=== PATIENT | female | born 1985 | race Caucasian/White ===

== ENCOUNTER 2016-09-30 21:27 | Emergency (ER) | payer OTHER ==
[2016-09-30 21:36] VITALS: BP 141/92; PULSE 86; TEMP 98.1; BMI 29.0
--- NOTE | 2016-09-30 22:02 | PDOC ---
History of Present Illness - General Chief Complaint: Pain, Acute Stated Complaint: chest pain Time Seen by Provider: 09/30/16 21:38 - History of Present Illness Initial Comments: This 30-year-old woman with a history of anxiety but no other significant past medical history presents with a 3 day history of intermittent left-sided chest pain along with left arm discomfort. Patient relates onset of pain that was sudden while [facility]. She felt both left upper anterior chest pain as well as discomfort in her left upper back. She had radiation of discomfort down her left arm along with tingling. There was no numbness or weakness of her arm. Pain was not worsened by position or deep breathing. She recalls no overuse or trauma to the area. No history of neck injury or chronic pain. The episodes have resolved after using nonsteroidal anti-inflammatory medications(OTC naproxen). She denies shortness of breath/fever or chills/nausea or other gastrointestinal symptoms. Cardiac risk factors: One grandfather of "heart attack" at age 60; otherwise, no family history of coronary artery disease No hypertension/diabetes mellitus/hyperlipidemia/ smoking/obesity Past History - Past Medical History Allergies/Adverse Reactions: Allergies Allergy/AdvReac Type Severity Reaction Status Date / Time No Known Allergies Allergy Verified 09/30/16 21:30 Home Medications: Ambulatory Orders Meloxicam [Mobic] 15 mg PO DAILY #20 tablet 09/30/16 Psychiatric Problems: Yes (anxiety) - Immunization History Immunization Up to Date: Yes - Psycho/Social/Smoking Cessation Hx Anxiety: No Suicidal Ideation: No Smoking History: Never smoked Have you smoked in the past 12 months: No Information on smoking cessation initiated: No Hx Alcohol Use: Yes (SOCIAL) Drug/Substance Use Hx: No Substance Use Type: None Review of Systems - Review of Systems Able to Perform ROS?: Yes Comments:: 12 point review of systems is negative except for what is noted in the history of present illness *Physical Exam - Vital Signs Last Vital Signs Temp Pulse Resp BP Pulse Ox 98.1 F 86 16 141/92 100 09/30/16 21:32 09/30/16 21:32 09/30/16 21:32 09/30/16 21:32 09/30/16 21:32 - Physical Exam Comments: GENERAL: Adult female, alert and oriented 3, in no acute distress HEAD: Normal with no signs of trauma. EYES: PERRLA, EOMI, sclera anicteric, conjunctiva clear. ENT: Ears normal, nares patent, oropharynx clear without exudates. Moist mucous membranes. NECK: Normal range of motion, supple without lymphadenopathy, JVD, or masses. LUNGS: Breath sounds equal, clear to auscultation bilaterally. No wheezes, and no crackles. HEART:Regular rate and rhythm, normal S1 and S2 without murmur, rub or gallop. ABDOMEN:.normal bowel sounds No guarding,tenderness or rebound.No masses No distention. EXTREMITIES: Normal range of motion, no edema. No clubbing or cyanosis. No erythema, or tenderness. NEUROLOGICAL: Cranial nerves II through XII grossly intact. Normal speech. No focal neurological deficits. MUSCULOSKELETAL: Back non-tender to palpation, no CVA tenderness SKIN: Warm, Dry, normal turgor, no rashes or lesions noted. Twelve-lead electrocardiogram is performed. This shows normal sinus rhythm at 70 bpm; axis, intervals and wave forms oral normal. No evidence of acute ST or T-wave abnormalities ED Treatment Course - LABORATORY CBC & Chemistry Diagram: 09/30/16 21:50 09/30/16 21:50 Medical Decision Making - Medical Decision Making CBC/chem profile/cardiac enzymes evaluated Because of the patient's paresthesias in the left upper extremity, pain likely of neurogenic origin. There is no evidence of weakness or sensory deficits on exam. Patient has been referred to her general doctor for further workup and evaluation. She should return to the emergency room if she experiences worsening of the pain or develops shortness of breath/cough/nausea/diaphoresis *DC/Admit/Observation/Transfer Diagnosis at time of Disposition: Atypical chest pain - Discharge Dispostion Disposition: HOME Condition at time of disposition: Stable - Prescriptions Prescriptions: Meloxicam [Mobic] 15 mg PO DAILY #20 tablet - Patient Instructions Printed Discharge Instructions: DI for Atypical Chest Pain Additional Instructions: Avoid strenuous activity for the next several days Follow-up with your doctor within the next 2-3 days Mobic 15 mg daily; take with food Return to ER if you have severe, persistent pain
[2016-09-30 22:24] LABS: BASOPHIL 1.5 % (0-2.0); EOSINOPHIL 2.9 % (0-4.5); MCH 29.6 pg (25.7-33.7); MCHC 32.8 g/dl (32.0-36.0); MEAN CELL VOLUME 90.1 fl (80-96); MEAN PLT VOLUME 10.1 fl (7.5-11.1); PLATELET COUNT 257 K/MM3 (134-434); RDW 13.2 % (11.6-15.6); WHITE BLOOD COUNT 5.5 K/mm3 (4.0-10.8)
[2016-09-30 22:36] LABS: ALBUMIN 3.9 g/dl (3.5-5.0); ALK PHOS 63 U/L (32-92); ANION GAP 10 (8-16); BILIRUBIN,TOTAL 0.6 mg/dl (0.2-1.0); CALCIUM 8.8 mg/dl (8.4-10.2); CO2 26 mmol/L (22-28); CPK(DFH) 77 IU/L (26-140); CREATININE 0.8 mg/dl (0.6-1.3); GLUCOSE,RANDOM 114 mg/dl (74-106); SGOT/AST 20 U/L (10-42); SGPT/ALT 24 U/L (10-40); TOT PROT 6.5 g/dl (6.4-8.3)
[2016-09-30 22:47] LABS: COCKROFT - GAULT NT
[2016-09-30 23:01] LABS: TROPONIN I (DFP) < 0.03 ng/ml (0.03-0.50)
--- NOTE | 2016-10-01 11:51 | EKG ---
Test Reason : Blood Pressure : / mmHG Vent. Rate : 070 BPM Atrial Rate : 070 BPM P-R Int : 202 ms QRS Dur : 088 ms QT Int : 378 ms P-R-T Axes : 012 062 050 degrees QTc Int : 408 ms NORMAL SINUS RHYTHM NORMAL ECG WHEN COMPARED WITH ECG OF 02-FEB-2014 18:29, NO SIGNIFICANT CHANGE WAS FOUND Confirmed by ANASTASIA WHITLEY MD ([id number]) on 10/01/2016 11:51:12 AM Referred By: MICHAEL Confirmed By:ANASTASIA WHITLEY MD
== END 2016-09-30 23:47 | disposition home or self-care (01) ==
LOC: FER 21:27
DX: R07.89 Other chest pain (principal); F41.9 Anxiety disorder, unspecified
CPT/HCPCS: 36415; 80053; 82550; 84484; 85025; 93005; 93010; 99281-25

== ENCOUNTER 2017-02-28 18:47 | Emergency (ER) | payer OTHER ==
[2017-02-28 18:52] VITALS: BP 145/96; PULSE 100; TEMP 98.4; BMI 28.3
--- NOTE | 2017-02-28 18:54 | PDOC ---
Rapid Medical Evaluation Time Seen by Provider: 02/28/17 18:49 Medical Evaluation: Allergies Allergy/AdvReac Type Severity Reaction Status Date / Time No Known Allergies Allergy Verified 09/30/16 21:30 02/28/17 18:49 I have performed a brief in-person evaluation of this patient. The patient presents with a chief complaint of: Palpitations and dizziness today. Currently 14 weeks w/ no issues preg so far. States she has has similar symptoms in past with no clear etiology on prior w/u including TSH Pertinent physical exam findings:in NAD w/ BP of 140s/90s w/ HR 100 in triage I have ordered the following:ekg The patient will proceed to the ED for further evaluation.
--- NOTE | 2017-02-28 20:36 | PDOC ---
History of Present Illness - General Chief Complaint: Headache Stated Complaint: HEADACHE, 16 WEEKS Time Seen by Provider: 02/28/17 18:49 - History of Present Illness Initial Comments: 02/28/17 20:31 Chief complaint dizziness palpitations lightheadedness History of present illness: This is a 31-year-old woman no significant past medical history approximate 14 weeks who presents to the emergency department with episode of palpitations dizziness lightheadedness. Patient states she has had similar symptoms in the past has had previous blood work and a Holter monitor performed by not diagnostic. Symptoms lasted only a few minutes and resolved without any intervention. They're mild to moderate severity there is no clear inciting event they seemed to resolved with time. Past History - Travel Traveled outside of the country in the last 30 days: No Close contact w/someone who was outside of country & ill: No - Past Medical History Allergies/Adverse Reactions: Allergies Allergy/AdvReac Type Severity Reaction Status Date / Time No Known Allergies Allergy Verified 02/28/17 18:52 Home Medications: Ambulatory Orders Meloxicam [Mobic] 15 mg PO DAILY #20 tablet 09/30/16 COPD: No Psychiatric Problems: Yes (anxiety) - Immunization History Immunization Up to Date: Yes - Suicide/Smoking/Psychosocial Hx Smoking History: Never smoked Have you smoked in the past 12 months: No Hx Alcohol Use: No Drug/Substance Use Hx: No Substance Use Type: None Review of Systems - Review of Systems Able to Perform ROS?: Yes Comments:: 02/28/17 20:34 ROS: A complete review of 10 out of 10 review of systems is taken and is negative apart from what is previously mentioned below and in the HPI. *Physical Exam - Vital Signs Last Vital Signs Temp Pulse Resp BP Pulse Ox 98.4 F 100 H 16 145/96 100 02/28/17 18:48 02/28/17 18:48 02/28/17 18:48 02/28/17 18:48 02/28/17 18:48 - Physical Exam Comments: 02/28/17 20:35 Vitals: Triage Vital signs reviewed General Appearance: no acute distress, well nourished well developed, Head: Atraumatic, Neck: Supple;No Nucal rigidity Chest Wall: Nontender Cardiac: Regular rate and rhythym, no murmurs, no rubs, no gallops, Lungs: Clear to auscultation bilateral, good air movement bilaterally, Abdomen: Soft, non distended, normal bowel sounds, non tender to palpation Extremities: Full range of motion to all extremities, no cyanosis, clubbing, or edema Skin: Warm and dry, no rashes or lesions, no rash, no petechiae Neuro: AOX3; Cranial Nerves 2-12 grossly intact, Strength intact to all extremities, Sensation intact to all extremities,gait normal Psych: normal mood, normal affect Heart Score/ECG Review - ECG Impressions Normal ECG: Yes Non-specific ST Elevation: No WPW: No Comment:: 02/28/17 20:36 ED Treatment Course - LABORATORY CBC & Chemistry Diagram: 02/28/17 20:20 02/28/17 20:20 Medical Decision Making - Medical Decision Making 02/28/17 20:36 Well-appearing no apparent distress normal examination at this time. We'll check labs EKG thyroid panel and reassess. 02/28/17 21:12 Well-appearing no apparent distress EKG labs and physical examination all within normal limits patient will follow- up with her doctor on Friday she'll return to ED for any severe returning symptoms or for any concerns. *DC/Admit/Observation/Transfer Diagnosis at time of Disposition: Palpitations - Discharge Dispostion Admit: No - Patient Instructions Printed Discharge Instructions: DI for Palpitations Additional Instructions: Drink plenty of fluids. Follow up with her doctor on Friday. Return to the emergency department for any severe worsening symptoms or for any concerns.
[2017-02-28 20:39] LABS: BASO % 0.3 % (0-2.0); EOS % 0.8 % (0-4.5); HEMATOCRIT 38.2 % (32.4-45.2); HEMOGLOBIN 13.3 GM/dL (10.7-15.3); LYMPH % 27.7 % (8-40); MCH 31.6 pg (25.7-33.7); MCHC 34.8 g/dl (32.0-36.0); MEAN CELL VOLUME 90.9 fl (80-96); MEAN PLT VOLUME 9.9 fl (7.5-11.1); MONO % 5.6 % (3.8-10.2); NEUT % 65.6 % (42.8-82.8); PLATELET COUNT 236 K/MM3 (134-434); RDW 13.8 % (11.6-15.6); WHITE BLOOD COUNT 6.9 K/mm3 (4.0-10.0)
[2017-02-28 20:42] LABS: URINE APPEARANCE SLCLOUDY; URINE BILIRUBIN NEGATIVE (NEGATIVE); URINE BLOOD NEGATIVE (NEGATIVE); URINE COLOR LTYELLOW; URINE GLUCOSE (UA) NEGATIVE (NEGATIVE); URINE KETONE TRACE (NEGATIVE); URINE NITRITE NEGATIVE (NEGATIVE); URINE PROTEIN NEGATIVE (NEGATIVE)
[2017-02-28 20:54] LABS: ANION GAP 6 (8-16); BLOOD UREA NITROGEN 12 mg/dL (7-18); CALCIUM 8.5 mg/dL (8.5-10.1); CHLORIDE 104 mmol/L (98-107); CO2 26 mmol/L (21-32); CREATININE 0.7 mg/dL (0.55-1.02); GLUCOSE,RANDOM 78 mg/dL (74-106); POTASSIUM 4.4 mmol/L (3.5-5.1); SODIUM 136 mmol/L (136-145)
[2017-02-28 22:59] LABS: URINE LEUK ESTERASE Negative (NEGATIVE)
--- NOTE | 2017-03-04 20:44 | EKG ---
Test Reason : Blood Pressure : / mmHG Vent. Rate : 074 BPM Atrial Rate : 074 BPM P-R Int : 194 ms QRS Dur : 078 ms QT Int : 360 ms P-R-T Axes : 029 039 028 degrees QTc Int : 399 ms NORMAL SINUS RHYTHM T-WAVE INVERSION IN ANTERIOR LEADS CONSIDER JUVENILE T WAVES WHEN COMPARED WITH ECG OF 30-SEP-2016 21:25, NO SIGNIFICANT CHANGE WAS FOUND Confirmed by RACHEL CHICAS, VINNY ([id number]) on 03/04/2017 8:44:23 PM Referred By: Confirmed By:VINNY RAMOS MD
== END 2017-02-28 21:17 | disposition home or self-care (01) ==
LOC: JER 18:47
DX: O26.892 Other specified pregnancy related conditions, second trimester (principal); R00.2 Palpitations; Z3A.14 14 weeks gestation of pregnancy
CPT/HCPCS: 36415; 80048; 81003; 84439; 84443; 84481; 85025; 93005; 93010; 99281-25

== ENCOUNTER 2017-10-12 08:36 | Emergency (ER) | payer OTHER ==
[2017-10-12 08:44] VITALS: BP 124/81; PULSE 74; BMI 28.3
--- NOTE | 2017-10-12 09:43 | PDOC ---
History of Present Illness - General Chief Complaint: Pain Stated Complaint: LT LEG PAIN Time Seen by Provider: 10/12/17 09:25 History Source: Patient Exam Limitations: No Limitations - History of Present Illness Initial Comments: 10/12/17 09:37 Patient came to emergency department with complaints of left knee pain. His 2 months, with an uncomplicated but since that time states this had pain to her left leg. He was seen at an urgent care and had ultrasound performed which revealed some vascular defect in her thigh but no blood clots. Was recommended to follow up with a vascular surgeon which she has not thus far. Patient denies any recent trauma, twisting injury, no history of knee issues and was not a sports/athlete in the past. Denies fever, shortness of breath, cough, redness, any other injuries. 10/12/17 10:47 Occurred: reports: last week Severity: reports: mild, moderate Pain Location: reports: lower extremity Method of Injury: Yes: unknown (left knee) Modifying Factors: improves with: None Loss of Consciousness: no loss of consciousness Associated Symptoms (Fall): denies symptoms Past History - Travel Traveled outside of the country in the last 30 days: No Close contact w/someone who was outside of country & ill: No - Past Medical History Allergies/Adverse Reactions: Allergies Allergy/AdvReac Type Severity Reaction Status Date / Time No Known Allergies Allergy Verified 10/12/17 08:45 Home Medications: Ambulatory Orders Ibuprofen [Motrin -] 600 mg PO PRN PRN 08/15/17 Labetalol HCl 100 mg PO BID #20 tablet 08/16/17 COPD: No HTN: Yes (post delivery) Psychiatric Problems: Yes (anxiety) - Immunization History Immunization Up to Date: Yes - Suicide/Smoking/Psychosocial Hx Smoking History: Never smoked Have you smoked in the past 12 months: No Hx Alcohol Use: No Drug/Substance Use Hx: No Substance Use Type: None Review of Systems - Review of Systems Able to Perform ROS?: Yes Is the patient limited Luxembourger proficient: Yes Constitutional: Yes: Symptoms Reported, See HPI. No: Malaise HEENTM: Yes: See HPI. No: Symptoms Reported Respiratory: Yes: See HPI. No: Symptoms reported, Cough, Shortness of Breath, Wheezing Musculoskeletal: Yes: Symptoms Reported, See HPI, Joint Pain, Joint Swelling ( left knee) Integumentary: Yes: See HPI. No: Symptoms Reported, Bruising, Erythema, Rash Neurological: Yes: Symptoms reported, See HPI. No: Numbness All Other Systems: Reviewed and Negative *Physical Exam - Vital Signs Last Vital Signs Temp Pulse Resp BP Pulse Ox 74 18 124/81 99 10/12/17 08:40 10/12/17 08:40 10/12/17 08:40 10/12/17 08:40 - Physical Exam General Appearance: Yes: Nourished, Appropriately Dressed, Apparent Distress, Mild Distress HEENT: positive: TO, Normal ENT Inspection, Normal Voice, TMs Normal, Pharynx Normal, Rhinorrhea Neck: positive: Supple. negative: Tender Respiratory/Chest: positive: Lungs Clear, Normal Breath Sounds Gastrointestinal/Abdominal: positive: Normal Bowel Sounds, Soft Musculoskeletal: positive: Normal Inspection. negative: Vertebral Tenderness Extremity: positive: Normal Capillary Refill, Normal Inspection, Normal Range of Motion (has tenderness reproduced along), Tender (tenderness reproduced along the medial aspect of left knee at inferior and superior insertion site of MCL. Patella is mobile, without crepitus or step-off, has mild swelling but no ballottement and range of motion appears intact. Neurovascular intact to foot, swelling tenderness or erythema. Thigh has good contractile strength to hamstring and quadriceps ) Integumentary: positive: Normal Color, Warm. 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 Will refer to orthopedist if vascular surgeon does not have definitive answers and recommend neoprene sleeve ,rest and elevation. *DC/Admit/Observation/Transfer Diagnosis at time of Disposition: Strain of left knee and leg Qualifiers: Encounter type: initial encounter Qualified Code(s): S86.912A - Strain of unspecified muscle(s) and tendon(s) at lower leg level, left leg, initial encounter - Discharge Dispostion Disposition: HOME Condition at time of disposition: Stable Decision to Admit order: No - Referrals Referrals: Manan Harrison MD [Primary Care Provider] - Manuel Dexter MD [Staff Physician] - - Patient Instructions Printed Discharge Instructions: DI for Knee Sprain Additional Instructions: Rest, ice to area on and off for 15 minutes 4-6 times a day Avoid heavy lifting or exercise until pain and swelling is resolved or until further directed Keep area highly elevated to reduce swelling Use splints/Ramu wrap as directed Followup with orthopedist in one to 2 days if not improving, if significantly improved may wait one week for followup with orthopedist May use ibuprofen 2-200 mg tablets every 6 hours as needed for pain - Post Discharge Activity
== END 2017-10-12 12:30 | disposition home or self-care (01) ==
LOC: JERFT 08:36
DX: S86.812D Strain of other muscle(s) and tendon(s) at lower leg level, left leg, subsequent encounter (principal); X58.XXXD Exposure to other specified factors, subsequent encounter; O13.5 Gestational [pregnancy-induced] hypertension without significant proteinuria, complicating the puerperium
CPT/HCPCS: 99281-25

== ENCOUNTER 2017-10-19 02:49 | Emergency (ER) | payer OTHER ==
[2017-10-19 03:08] VITALS: TEMP 98.7; BMI 28.2
--- NOTE | 2017-10-19 03:42 | PDOC ---
History of Present Illness - General Chief Complaint: Pain, Acute Stated Complaint: LEFT ARM PAIN,ELEVATED BLOOD PRESSURE Time Seen by Provider: 10/19/17 03:42 - History of Present Illness Initial Comments: 10/19/17 03:42 Ms. Beltrán is a 31 yo female w/ pmh of pre-eclampsia (currently 9 weeks post ) who presents for evaluation of 1 day history of intermittent left shoulder pain with left arm pain and elevated BP earlier this evening (160's/100 's). Patient reports she had previously been on labetalol for her HTN however has been off of it per her administrator for several weeks. She took a labetalol after noting BP this morning. She has previously been evaluated for "aches and pains" and has a recent diagnosis of venous insufficiency in her left leg. The patient denies chest pain, shortness of breath, headache and dizziness. Denies fever, chills, nausea, vomit, diarrhea and constipation. Denies dysuria, frequency, urgency and hematuria. Allergies: NKDA Past History - Past Medical History Allergies/Adverse Reactions: Allergies Allergy/AdvReac Type Severity Reaction Status Date / Time No Known Allergies Allergy Verified 10/12/17 08:45 Home Medications: Ambulatory Orders Ibuprofen [Motrin -] 600 mg PO PRN PRN 08/15/17 Labetalol HCl 100 mg PO BID #20 tablet 08/16/17 COPD: No HTN: Yes (post delivery) Psychiatric Problems: Yes (anxiety) - Immunization History Immunization Up to Date: Yes - Suicide/Smoking/Psychosocial Hx Smoking History: Never smoked Have you smoked in the past 12 months: No Hx Alcohol Use: No Drug/Substance Use Hx: No Substance Use Type: None Review of Systems - Review of Systems Comments:: 10/19/17 03:43 GENERAL/CONSTITUTIONAL: No fever or chills. No weakness. HEAD, EYES, EARS, NOSE AND THROAT: No change in vision. No ear pain or discharge. No sore throat. CARDIOVASCULAR: +Single episode of palpitations (now resolved) No chest pain or shortness of breath RESPIRATORY: No cough, wheezing, or hemoptysis. GASTROINTESTINAL: No nausea, vomiting, diarrhea or constipation. GENITOURINARY: No dysuria, frequency, or change in urination. MUSCULOSKELETAL: +Left arm pain as described. SKIN: No rash NEUROLOGIC: No headache, vertigo, loss of consciousness, or change in strength/ sensation. ENDOCRINE: No increased thirst. No abnormal weight change HEMATOLOGIC/LYMPHATIC: No anemia, easy bleeding, or history of blood clots. ALLERGIC/IMMUNOLOGIC: No hives or skin allergy. 10/19/17 06:43 *Physical Exam - Vital Signs Last Vital Signs Temp Pulse Resp BP Pulse Ox 98.7 F 73 18 126/86 100 10/19/17 03:05 10/19/17 03:05 10/19/17 03:05 10/19/17 03:05 10/19/17 03:05 - Physical Exam Comments: 10/19/17 03:43 GENERAL: Awake, alert, and fully oriented, in no acute distress HEAD: No signs of trauma, normocephalic, atraumatic EYES: PERRLA, EOMI, sclera anicteric, conjunctiva clear ENT: Auricles normal inspection, hearing grossly normal, nares patent, oropharynx clear without exudates. Moist mucosa NECK: Normal ROM, supple, no lymphadenopathy, JVD, or masses LUNGS: No distress, speaks full sentences, clear to auscultation bilaterally HEART: Regular rate and rhythm, normal S1 and S2, no murmurs, rubs or gallops, peripheral pulses normal and equal bilaterally. ABDOMEN: Soft, nontender, normoactive bowel sounds. No guarding, no rebound. No masses EXTREMITIES: Normal inspection, Normal range of motion, no edema. No clubbing or cyanosis. NEUROLOGICAL: Cranial nerves II through XII grossly intact. Normal speech, normal gait, no focal sensorimotor deficits SKIN: Warm, Dry, normal turgor, no rashes or lesions noted. ED Treatment Course - LABORATORY CBC & Chemistry Diagram: 10/19/17 04:07 10/19/17 04:07 Medical Decision Making - Medical Decision Making 10/19/17 05:34 Ms. Beltrán is a 31 yo female w/ pmh as described who presents for evaluation of palpitations and arm pain as described. Workup begun with EKG/Cardiac labs for evaluation. Initial troponin negative; EKG normal. Labs grossly wnl as below. Repeat troponin likewise negative. No concern for acute process at this time. Discharging with instructions to f/u with PCP for further evaluation. Laboratory Results - last 24 hr 10/19/17 10/19/17 10/19/17 04:07 04:07 04:10 WBC 4.8 RBC 3.99 Hgb 12.6 Hct 36.9 MCV 92.5 MCH 31.6 MCHC 34.2 RDW 13.0 Plt Count 253 MPV 9.0 Absolute Neuts (auto) 2.1 Neutrophils % 44.5 D Lymphocytes % 46.6 H D Monocytes % 6.6 Eosinophils % 2.0 D Basophils % 0.3 Nucleated RBC % 0 Sodium 139 Potassium 3.7 Chloride 105 Carbon Dioxide 29 Anion Gap 5 L BUN 20 H Creatinine 0.9 Creat Clearance w eGFR > 60 Random Glucose 88 Calcium 7.5 L Total Bilirubin 0.3 AST 14 L ALT 23 Alkaline Phosphatase 84 Creatine Kinase 82 Troponin I < 0.02 Total Protein 6.4 Albumin 3.2 L Urine Color Straw Urine Appearance Slcloudy Urine pH 6.0 Ur Specific [place] 1.010 Urine Protein Negative Urine Glucose (UA) Negative Urine Ketones Negative Urine Blood Negative Urine Nitrite Negative Urine Bilirubin Negative Urine Urobilinogen Negative Ur Leukocyte Esterase Trace Urine WBC (Auto) 2 Urine RBC (Auto) 1 Ur Epithelial Cells Few Urine Bacteria Rare Urine Mucus Rare Urine HCG, Qual 10/19/17 10/19/17 04:20 05:37 WBC RBC Hgb Hct MCV MCH MCHC RDW Plt Count MPV Absolute Neuts (auto) Neutrophils % Lymphocytes % Monocytes % Eosinophils % Basophils % Nucleated RBC % Sodium Potassium Chloride Carbon Dioxide Anion Gap BUN Creatinine Creat Clearance w eGFR Random Glucose Calcium Total Bilirubin AST ALT Alkaline Phosphatase Creatine Kinase Troponin I < 0.02 Total Protein Albumin Urine Color Urine Appearance Urine pH Ur Specific [place] Urine Protein Urine Glucose (UA) Urine Ketones Urine Blood Urine Nitrite Urine Bilirubin Urine Urobilinogen Ur Leukocyte Esterase Urine WBC (Auto) Urine RBC (Auto) Ur Epithelial Cells Urine Bacteria Urine Mucus Urine HCG, Qual Negative *DC/Admit/Observation/Transfer Diagnosis at time of Disposition: Palpitations Arm pain Qualifiers: Laterality: left Qualified Code(s): M79.602 - Pain in left arm - Discharge Dispostion Disposition: HOME - Referrals - Patient Instructions Printed Discharge Instructions: DI for Arm Pain, DI for Palpitations Additional Instructions: Please follow-up with primary care provider later this week for further evaluation. Return to ER if any chest pain, fever, chills, or other concerning symptoms. - Post Discharge Activity
[2017-10-19 04:21] LABS: BASO % 0.3 % (0-2.0); HEMATOCRIT 36.9 % (32.4-45.2); HEMOGLOBIN 12.6 GM/dL (10.7-15.3); LYMPH % 46.6 % (8-40); MCH 31.6 pg (25.7-33.7); MCHC 34.2 g/dl (32.0-36.0); MEAN CELL VOLUME 92.5 fl (80-96); MONO % 6.6 % (3.8-10.2); NEUT % 44.5 % (42.8-82.8); PLATELET COUNT 253 K/MM3 (134-434); RBC 3.99 M/mm3 (3.60-5.2); WHITE BLOOD COUNT 4.8 K/mm3 (4.0-10.0)
[2017-10-19 04:31] LABS: URINE APPEARANCE SLCLOUDY; URINE BILIRUBIN NEGATIVE (<2.0 mg/dL); URINE COLOR STRAW; URINE GLUCOSE (UA) NEGATIVE (NEGATIVE); URINE KETONE NEGATIVE (NEGATIVE); URINE LEUK ESTERASE TRACE (NEGATIVE); URINE NITRITE NEGATIVE (NEGATIVE); URINE PROTEIN NEGATIVE (NEGATIVE); URINE UROBILINOGEN NEGATIVE mg/dL (0.2-1.0)
[2017-10-19 04:38] LABS: EPI CELLS FEW /HPF (FEW); URINE BACTERIA RARE /hpf (NONE SEEN); URINE MUCUS RARE
[2017-10-19 04:56] LABS: ALBUMIN 3.2 g/dl (3.4-5.0); ANION GAP 5 (8-16); BLOOD UREA NITROGEN 20 mg/dL (7-18); CALCIUM 7.5 mg/dL (8.5-10.1); CHLORIDE 105 mmol/L (98-107); CO2 29 mmol/L (21-32); CREATININE 0.9 mg/dL (0.55-1.02); GLUCOSE,RANDOM 88 mg/dL (74-106); POTASSIUM 3.7 mmol/L (3.5-5.1); SGOT/AST 14 U/L (15-37); SGPT/ALT 23 U/L (12-78); SODIUM 139 mmol/L (136-145)
[2017-10-19 05:00] LABS: ALK PHOS 84 U/L (45-117); BILIRUBIN,TOTAL 0.3 mg/dL (0.2-1.0); TOT PROT 6.4 g/dl (6.4-8.2)
--- NOTE | 2017-10-19 06:57 | PDOC ---
Attending Attestation - Resident Resident Name: Lang Kinney - ED Attending Attestation I have performed the following: I have examined & evaluated the patient, The case was reviewed & discussed with the resident, I agree w/resident's findings & plan, Exceptions are as noted - HPI HPI: 10/19/17 06:50 Patient is a 31 year old female with a significant past medical history of preeclampsia (currently 9 weeks post ), who presents to the ED with complaints of intermittent atraumatic left shoulder pain that began 1 day ago while at home. She reports checking her BP with her fathers blood pressure cuff , and found it to be 160/100, prompting her to take a dose of her 100mg labetalol she had from when she had pre-eclampsia. She then activated EMS. She reports being taken off of her Labetalol by her asphalt engineer for multiple weeks since her BP improved. She denies current shoulder pain. Reports she had some palpitations after checking her BP which resolved within a few mins. Denies chest pain, Sob, diaphoresis, dizziness, weakness. Denies nausea, vomiting. Denies contact with sick individuals, out of state travelling. Denies fevers, chills. Denies diarrhea, constipation. Denies dysuria, hematuria. Denies any other symptoms. Allergies: None Social history: No smoking. No alcohol. No illicit drugs. Surgical history: Tonsillectomy PMD: None - Physicial Exam PE: 10/19/17 06:57 GENERAL: Awake, alert, and fully oriented, in no acute distress HEAD: No signs of trauma EYES: PERRLA, EOMI, sclera anicteric, conjunctiva clear ENT: Auricles normal inspection, hearing grossly normal, nares patent, oropharynx clear without exudates. Moist mucosa NECK: Normal ROM, supple, no lymphadenopathy, JVD, or masses LUNGS: Breath sounds equal, clear to auscultation bilaterally. No wheezes, and no crackles HEART: Regular rate and rhythm, normal S1 and S2, no murmurs, rubs or gallops ABDOMEN: Soft, nontender, normoactive bowel sounds. No guarding, no rebound. No masses EXTREMITIES: Normal range of motion, no edema. No clubbing or cyanosis. No cords, erythema. L shoulder with muscular ttp. NEUROLOGICAL: Normal speech, cranial nerves intact, negative pronator drift, 5/ 5 strength in all 4 extremities, normal sensation to light touch in all 4 extremities, normal cerebellar exam, normal gait, normal reflexes and tone SKIN: Warm, Dry, normal turgor, no rashes or lesions noted. - Medical Decision Making 10/19/17 06:57 31yo F hx post- pre-eclampsia, now 9 weeks post and no longer on BP meds due to resolved pre-eclampsia presents to the ED with L shoulder pain and elevated BP read. Vitals here wnl, initial BP 126/86. On repeat, was stable. Exam with L shoulder ttp, likely MSK in nature. EKG wnl. Labs with normal platelets, liver/kidney function, and UA with no proteinuria. Pt asymptomatic during ED stay, feels well, requests DC home. Advised her to f/u with her PMD within 2-3 days. I discussed the physical exam findings, ancillary test results and final diagnoses with the patient. I answered all of the patient's questions. The patient was satisfied with the care received and felt comfortable with the discharge plan and treatment plan. The patient will call their primary care physician within 24 hours to arrange follow-up and will return to the Emergency Department with any new, persistent or worsening symptoms.
[2017-10-19 07:03] VITALS: BP 122/77; PULSE 85
--- NOTE | 2017-10-20 17:36 | EKG ---
Test Reason : Blood Pressure : / mmHG Vent. Rate : 068 BPM Atrial Rate : 068 BPM P-R Int : 238 ms QRS Dur : 080 ms QT Int : 400 ms P-R-T Axes : 043 035 031 degrees QTc Int : 425 ms SINUS RHYTHM WITH 1ST DEGREE A-V BLOCK LOW VOLTAGE QRS BORDERLINE ECG WHEN COMPARED WITH ECG OF 15-AUG-2017 23:41, NO SIGNIFICANT CHANGE WAS FOUND Confirmed by KACIE DENNIS MD ([id number]) on 10/20/2017 5:36:22 PM Referred By: Confirmed By:KACIE DENNIS MD
== END 2017-10-19 07:02 | disposition home or self-care (01) ==
LOC: JER 02:49
DX: I10 Essential (primary) hypertension (principal); F41.9 Anxiety disorder, unspecified
CPT/HCPCS: 36415; 80053; 81003; 81015; 82550; 84484; 84703; 85025; 87086; 93005; 93010; 99283-25

== ENCOUNTER 2018-01-25 10:39 | Emergency (ER) | payer OTHER ==
[2018-01-25 10:43] VITALS: BP 135/88; PULSE 83; TEMP 98.9; BMI 26.6
--- NOTE | 2018-01-25 10:53 | PDOC ---
History of Present Illness - General Chief Complaint: Headache Stated Complaint: HEADACHE Time Seen by Provider: 01/25/18 10:53 - History of Present Illness Initial Comments: 32 year old previously healthy female who recently delivered a healthy baby 5 months prior that was complicated with a brief course of post- pre- eclampsia presenting with headache for the past week. States The her headache came on one week prior as a patient safety officer right side neck tightness that radiated to the front of the right side of her head and occasionally down her right arm. Has some slight nausea but no vomiting. She also has occasional parasthesias in her face. Denies any weakness in any extremity, speech deficits, or other neuro symptoms. Denies fevers, chills, vomiting, or other symptoms. 01/25/18 11:22 Past History - Past Medical History Allergies/Adverse Reactions: Allergies Allergy/AdvReac Type Severity Reaction Status Date / Time No Known Allergies Allergy Verified 01/25/18 10:43 Home Medications: Ambulatory Orders Ibuprofen [Motrin -] 600 mg PO PRN PRN 08/15/17 Labetalol HCl 100 mg PO BID #20 tablet 08/16/17 COPD: No HTN: Yes (post delivery) Psychiatric Problems: Yes (anxiety) - Immunization History Immunization Up to Date: Yes - Suicide/Smoking/Psychosocial Hx Smoking History: Never smoked Have you smoked in the past 12 months: No Hx Alcohol Use: No Drug/Substance Use Hx: No Substance Use Type: None Review of Systems - Review of Systems Constitutional: No: Chills, Diaphoresis, Fever, Loss of Appetite HEENTM: No: Blurred Vision, Tearing, Recent change in vision Respiratory: No: Cough, Shortness of Breath, SOB with Exertion, Wheezing Cardiac (ROS): No: Chest Pain, Edema, Irregular Heart Rate ABD/GI: Yes: Nausea. No: Constipated, Diarrhea, Poor Appetite, Vomiting : No: Dysuria, Discharge, Frequency Musculoskeletal: No: Back Pain, Joint Pain, Joint Swelling Integumentary: No: Lesions, Lumps, Pallor Neurological: Yes: Headache, Paresthesia, Tingling. No: Numbness, Seizure, Tremors, Weakness, Unsteady Gait, Ataxia, Dizziness Psychiatric: No: Anxiety, Depression Endocrine: No: Excessive Sweating, Flushing Hematologic/Lymphatic: No: Anemia, Blood Clots, Easy Bleeding *Physical Exam - Vital Signs Last Vital Signs Temp Pulse Resp BP Pulse Ox 98.9 F 83 18 135/88 99 01/25/18 10:41 01/25/18 10:41 01/25/18 10:41 01/25/18 10:41 01/25/18 10:41 - Physical Exam General Appearance: Yes: Nourished, Appropriately Dressed. No: Apparent Distress HEENT: positive: EOMI, TO, Normal ENT Inspection, Normal Voice Neck: positive: Tender (paraspinal muscles tender), Trachea midline Respiratory/Chest: positive: Lungs Clear, Normal Breath Sounds, Accessory Muscle Use. negative: Chest Tender, Respiratory Distress Cardiovascular: positive: Regular Rhythm, Regular Rate Gastrointestinal/Abdominal: positive: Normal Bowel Sounds, Flat, Soft. negative : Tender Lymphatic: negative: Adenopathy, Tenderness Musculoskeletal: positive: Normal Inspection. negative: Decreased Range of Motion Extremity: positive: Normal Capillary Refill, Normal Inspection, Normal Range of Motion. negative: Tender Integumentary: positive: Normal Color, Dry, Warm Neurologic: positive: sample stitcher II-XII NML intact, Fully Oriented, Alert, Normal Mood/ Affect, Normal Response, Motor Strength 5/5 Medical Decision Making - Medical Decision Making 32 year old female with right sided headache and neck pain x 1 week with recent child and subsequent decreased sleep. Head 01/25/18 13:25 *DC/Admit/Observation/Transfer Diagnosis at time of Disposition: Headache Qualifiers: Headache type: unspecified Headache chronicity pattern: acute headache Intractability: not intractable Qualified Code(s): R51 - Headache - Discharge Dispostion Disposition: HOME Condition at time of disposition: Improved Decision to Admit order: No - Referrals Referrals: Manan Harrison MD [Primary Care Provider] - Pepito Early MD [Staff Physician] - - Patient Instructions Printed Discharge Instructions: DI for Headache Additional Instructions: Please follow up with the neurologist if your headaches are still bothering you. Please use Tylenol and Motrin every 6 hours for your headache. Please stay hydrated and well fed. Please return to the ED if you have worsening headache despite medication, nausea, vomiting, or any other concerning symptoms. - Post Discharge Activity
[2018-01-25] MEDS ORDERED: ACETAMINOPHEN 500 MG TABLET (FP) PO ONE (11:20)
[2018-01-25] MEDS ORDERED: SODIUM CHLORIDE 0.9% 500 ML INFUS.BAG IV ONE (11:29)
[2018-01-25] MEDS ORDERED: METOCLOPRAMIDE HCL 10 MG TABLET (FP) PO ONE (11:30)
[2018-01-25] MEDS ORDERED: METOCLOPRAMIDE HCL INJECTION 10 MG/2 ML VIAL ONE (11:54)
[2018-01-25] MEDS ORDERED: ACETAMINOPHEN 325 MG TABLET (FP) ONE ×2 (11:54→11:58)
--- NOTE | 2018-01-25 12:03 | PDOC ---
Attending Attestation - Resident Resident Name: Kirk Almonte - ED Attending Attestation I have performed the following: I have examined & evaluated the patient, The case was reviewed & discussed with the resident, I agree w/resident's findings & plan, Exceptions are as noted - HPI HPI: 01/25/18 12:03 32-year-old female patient with past medical history of preeclampsia, status post approximately several months ago presents with right-sided tension- like headache. She stated that she developed a gradual onset of right-sided constant headache. No photophobia or phonophobia. States she takes Motrin which improves headache. Denies neck stiffness or neck pain or fevers. Stated that she had a persistent headache which is new for her. Denies family history of migraines. Came to the ER because this is the first time. - Physicial Exam PE: 01/25/18 12:04 GENERAL: Awake, alert, and fully oriented, in no acute distress HEAD: No signs of trauma EYES: EOMI, sclera anicteric, conjunctiva clear ENT: Auricles normal inspection, hearing grossly normal, nares patent, Moist mucosa NECK: Normal ROM, supple, EXTREMITIES: Normal range of motion, no edema. No clubbing or cyanosis. No cords, erythema, or tenderness NEUROLOGICAL: Cranial nerves II through XII intact. Normal speech, no pronator drift. Rapid alternative movements and FTN normal. sensation and strength upper and lower extremities normal. SKIN: Warm, Dry, normal turgor, no rashes or lesions noted. - Medical Decision Making 01/25/18 12:05 Vital Signs Temp Pulse Resp BP Pulse Ox 98.9 F 83 18 135/88 99 01/25/18 10:41 01/25/18 10:41 01/25/18 10:41 01/25/18 10:41 01/25/18 10:41 I suspect that the patient has a tension like headache or possibly new onset migraines. She reports occasional tingling on R side of face, but denies now. Will obtain a head CT and evaluate for intracranial masses. I do not suspect SAH or ICH. Will trial migraines medications and reassess. If head CT is negative, and pt feels better, will discharge patient with follow up with neurology. 01/25/18 13:17 CT head reviewed. No acute findings.
[2018-01-25] MEDS ORDERED: KETOROLAC TROMETHAMINE 15 MG/ML VIAL IVPUSH ONE (13:54)
[2018-01-25] MEDS ORDERED: KETOROLAC TROMETHAMINE 15 MG/ML VIAL ONE (14:01)
== END 2018-01-25 14:10 | disposition home or self-care (01) ==
LOC: JER 10:39
PROC: 3E0333Z Introduction of Anti-inflammatory into Peripheral Vein, Percutaneous Approach (ICD-10-PCS; principal; 2018-01-25)
DX: R51 Headache (principal)
CPT/HCPCS: 70450-TC; 84703; 96374; 99281-25

== ENCOUNTER 2018-03-02 18:04 | Emergency (ER) | payer OTHER ==
--- NOTE | 2018-03-02 18:21 | PDOC ---
History of Present Illness - General Chief Complaint: Palpitations Stated Complaint: HEART PAPLITATIONS Time Seen by Provider: 03/02/18 18:21 History Source: Patient - History of Present Illness Initial Comments: 03/02/18 18:45 32F with pmh of post- hypertension presenting with palpations and feeling of lump in her throat since this morning. She gave vaginal on August 09 and has had on and off hypertension in the 160's since then associated with headaches and palpitations. Was originally on labetolol, is now on Nifedipine XL. Patient appearing anxious, hyperventilating. Sometimes anxious but never with those symptoms. Past History - Past Medical History Allergies/Adverse Reactions: Allergies Allergy/AdvReac Type Severity Reaction Status Date / Time No Known Allergies Allergy Verified 03/02/18 18:09 Home Medications: Ambulatory Orders Nifedipine ER [Procardia Xl -] 30 mg PO DAILY 03/02/18 COPD: No HTN: Yes (post delivery) Psychiatric Problems: Yes (anxiety) - Immunization History Immunization Up to Date: Yes - Suicide/Smoking/Psychosocial Hx Smoking History: Never smoked Have you smoked in the past 12 months: No Hx Alcohol Use: No Drug/Substance Use Hx: No Substance Use Type: None Review of Systems - Review of Systems Able to Perform ROS?: Yes Is the patient limited [place] Islander proficient: No Constitutional: No: Symptoms Reported HEENTM: No: Symptoms Reported Respiratory: No: Symptoms reported Cardiac (ROS): Yes: Palpitations ABD/GI: No: Symptoms Reported : No: Symptoms Reported Musculoskeletal: No: Symptoms Reported Integumentary: No: Symptoms Reported Neurological: No: Symptoms reported *Physical Exam - Vital Signs Last Vital Signs Temp Pulse Resp BP Pulse Ox 98.1 F 143 H 18 148/96 100 03/02/18 18:10 03/02/18 18:10 03/02/18 18:10 03/02/18 18:10 03/02/18 18:10 - Physical Exam General Appearance: Yes: Nourished, Appropriately Dressed, Mild Distress HEENT: positive: EOMI, TO, Normal ENT Inspection Respiratory/Chest: positive: Lungs Clear, Normal Breath Sounds. negative: Chest Tender Cardiovascular: positive: Regular Rhythm, S1, S2, Tachycardia Gastrointestinal/Abdominal: positive: Normal Bowel Sounds, Flat, Soft. negative : Tender Musculoskeletal: positive: Normal Inspection. negative: CVA Tenderness Extremity: positive: Normal Capillary Refill, Normal Inspection, Normal Range of Motion Integumentary: positive: Normal Color, Dry, Warm Neurologic: positive: Fully Oriented, Alert, Normal Mood/Affect, Normal Response , Motor Strength 08/30 ED Treatment Course - LABORATORY CBC & Chemistry Diagram: 03/02/18 18:45 03/02/18 18:45 - ADDITIONAL ORDERS Additional order review: Laboratory Results 03/02/18 03/02/18 03/02/18 20:18 19:52 18:48 PT with INR 11.30 INR 0.96 PTT (Actin FS) 30.8 Sodium Potassium Chloride Carbon Dioxide Anion Gap BUN Creatinine Creat Clearance w eGFR Random Glucose Calcium Total Bilirubin AST ALT Alkaline Phosphatase Troponin I B-Natriuretic Peptide Total Protein Albumin TSH Serum , Qual Negative Urine Color Ltyellow Urine Appearance Clear Urine pH 6.0 Ur Specific [place] 1.018 Urine Protein Negative Urine Glucose (UA) Negative Urine Ketones Trace H Urine Blood Negative Urine Nitrite Negative Urine Bilirubin Negative Urine Urobilinogen Negative Ur Leukocyte Esterase Negative 03/02/18 03/02/18 18:48 18:45 PT with INR INR PTT (Actin FS) Sodium 138 Potassium 3.8 Chloride 103 Carbon Dioxide 23 Anion Gap 11 BUN 18 Creatinine 0.8 Creat Clearance w eGFR > 60 Random Glucose 85 Calcium 8.8 Total Bilirubin 0.2 AST 12 L ALT 19 Alkaline Phosphatase 89 Troponin I < 0.02 B-Natriuretic Peptide 24.0 Total Protein 8.0 Albumin 4.3 TSH 1.04 Serum , Qual Urine Color Urine Appearance Urine pH Ur Specific [place] Urine Protein Urine Glucose (UA) Urine Ketones Urine Blood Urine Nitrite Urine Bilirubin Urine Urobilinogen Ur Leukocyte Esterase 03/02/18 18:45 RBC 4.76 MCV 91.3 MCHC 34.6 RDW 13.5 MPV 9.7 Neutrophils % 33.0 L D Lymphocytes % 57.5 H D Monocytes % 7.1 Eosinophils % 1.3 Basophils % 1.1 D - RADIOLOGY Radiology Studies Ordered: Category Date Time Status CHEST PA & LAT [RAD] Stat Radiology 03/02/18 20:22 Taken Medical Decision Making - Medical Decision Making 03/02/18 19:19 Anxiety attack vs hyperthyroidism vs PE Will check basic labs, tsh, UA 03/02/18 20:23 ekg: Sinu tachycardia at 18:24, repeat ekg was Sinus rhythm with 1st degree av block unchanged from September 03/02/18 20:49 Wells score of 0. Low suspicion for PE at this time. 03/02/18 21:30 Patient feels better, now has a headache asking for tylenol before discharge. *DC/Admit/Observation/Transfer Diagnosis at time of Disposition: Palpitations - Discharge Dispostion Disposition: HOME Condition at time of disposition: Improved Decision to Admit order: No - Referrals Referrals: Marco Merino MD [Primary Care Provider] - - Patient Instructions Printed Discharge Instructions: DI for Palpitations Additional Instructions: Follow up with your primary care provider within the next 3 days. Come back to the ER for any new, worsening or concerning symptoms. - Post Discharge Activity
[2018-03-02 18:23] VITALS: TEMP 98.1; BMI 26.2
--- NOTE | 2018-03-02 18:34 | PDOC ---
Attending Attestation - Physicial Exam PE: 03/02/18 19:29 +GENERAL: Anxious. Well-appearing, well-nourished. HEENT: Normocephalic, atraumatic. PERRL, EOM intact. +CARDIOVASCULAR: Tachycardic. PULMONARY: Clear to auscultation bilaterally. ABDOMEN: Soft, non-distended, non-tender. EXTREMITIES: Normal ROM in all four extremities. No gross deformities. SKIN: Warm, dry. No rash NEUROLOGICAL: No focal neurological deficits. <Edwige Barney - Last Filed: 03/02/18 19:29> - Resident Resident Name: Artur Torres - ED Attending Attestation I have performed the following: I have examined & evaluated the patient, The case was reviewed & discussed with the resident, I agree w/resident's findings & plan, Exceptions are as noted - HPI HPI: 03/02/18 18:32 32-year-old female did not feel well today starting she felt"strange" today and while driving to the ER she dev palpitations and started to hyperventilate and her fingers started to tingle 03/02/18 21:39 without intervention her HR decreased to 80 and ekg was nsr with no evidence of ischemia pt ls cxr napd,nl cardiac silhouette labs reviewed neg preg test pt;s symptoms resolved - Medical Decision Making 03/02/18 20:27 pt p/w anxiety,hyperventilating and HR of 143 -the pt was calmed down and she stopped hyperventilating and her heart rate fell to 84 and was NSR -her labs are unremarkable <Viat Pastrana - Last Filed: 03/02/18 21:42> Attestations - Attestations 03/02/18 19:30 Documentation prepared by Edwige Barney, acting as medical concierge for Vita Pastrana MD. <Edwige Barney - Last Filed: 03/02/18 19:29>
[2018-03-02 19:04] LABS: BASO % 1.1 % (0-2.0); EOS % 1.3 % (0-4.5); HEMATOCRIT 43.4 % (32.4-45.2); HEMOGLOBIN 15.1 GM/dL (10.7-15.3); LYMPH % 57.5 % (8-40); MCH 31.6 pg (25.7-33.7); MCHC 34.6 g/dl (32.0-36.0); MEAN CELL VOLUME 91.3 fl (80-96); MEAN PLT VOLUME 9.7 fl (7.5-11.1); MONO % 7.1 % (3.8-10.2); PLATELET COUNT 299 K/MM3 (134-434); RBC 4.76 M/mm3 (3.60-5.2); RDW 13.5 % (11.6-15.6); WHITE BLOOD COUNT 8.9 K/mm3 (4.0-10.0)
[2018-03-02 19:28] LABS: INR 0.96 (0.83-1.09); PROTHROMBIN TIME (PATIENT) 11.3 SEC (9.7-13.0)
[2018-03-02 19:31] LABS: ACTIVATED PTT 30.8 SECONDS (25.2-36.5)
[2018-03-02 19:57] LABS: ALBUMIN 4.3 g/dl (3.4-5.0); ALK PHOS 89 U/L (45-117); ANION GAP 11 MMOL/L (8-16); BILIRUBIN,TOTAL 0.2 mg/dL (0.2-1); BLOOD UREA NITROGEN 18 mg/dL (7-18); CALCIUM 8.8 mg/dL (8.5-10.1); CHLORIDE 103 mmol/L (98-107); CO2 23 mmol/L (21-32); CREATININE 0.8 mg/dL (0.55-1.3); GLUCOSE,RANDOM 85 mg/dL (74-106); POTASSIUM 3.8 mmol/L (3.5-5.1); SGOT/AST 12 U/L (15-37); SGPT/ALT 19 U/L (13-61); SODIUM 138 mmol/L (136-145)
[2018-03-02 20:04] LABS: URINE APPEARANCE CLEAR; URINE BILIRUBIN NEGATIVE (<2.0 mg/dL); URINE COLOR LTYELLOW; URINE GLUCOSE (UA) NEGATIVE (NEGATIVE); URINE KETONE TRACE (NEGATIVE); URINE LEUK ESTERASE NEGATIVE (NEGATIVE); URINE NITRITE NEGATIVE (NEGATIVE); URINE PROTEIN NEGATIVE (NEGATIVE); URINE UROBILINOGEN NEGATIVE mg/dL (0.2-1.0)
[2018-03-02] MEDS ORDERED: ACETAMINOPHEN 325 MG TABLET (FP) PO ONE (21:30)
[2018-03-02] MEDS ORDERED: ACETAMINOPHEN 325 MG TABLET (FP) ONE (21:56)
[2018-03-02 22:23] VITALS: BP 114/77; PULSE 70
--- NOTE | 2018-03-03 16:03 | EKG ---
Test Reason : Blood Pressure : / mmHG Vent. Rate : 085 BPM Atrial Rate : 085 BPM P-R Int : 210 ms QRS Dur : 080 ms QT Int : 360 ms P-R-T Axes : 058 047 053 degrees QTc Int : 428 ms SINUS RHYTHM WITH 1ST DEGREE A-V BLOCK OTHERWISE NORMAL ECG WHEN COMPARED WITH ECG OF 02-MAR-2018 18:24, [place] INTERVAL HAS INCREASED VENT. RATE HAS DECREASED BY 71 BPM BORDERLINE CRITERIA FOR ANTERIOR INFARCT ARE NO LONGER PRESENT BORDERLINE CRITERIA FOR ANTEROLATERAL INFARCT ARE NO LONGER PRESENT ST NO LONGER DEPRESSED IN LATERAL LEADS Confirmed by Fuad Bright ([id number]) on 03/03/2018 4:02:24 PM Referred By: Confirmed By:Fuad Bright
--- NOTE | 2018-03-03 16:05 | EKG ---
Test Reason : Blood Pressure : / mmHG Vent. Rate : 156 BPM Atrial Rate : 156 BPM P-R Int : 000 ms QRS Dur : 078 ms QT Int : 324 ms P-R-T Axes : 000 083 067 degrees QTc Int : 522 ms POOR DATA QUALITY, INTERPRETATION MAY BE ADVERSELY AFFECTED SINUS TACHYCARDIA POSSIBLE ANTEROLATERAL INFARCT , AGE UNDETERMINED ABNORMAL ECG WHEN COMPARED WITH ECG OF 19-OCT-2017 04:30, [place] INTERVAL HAS DECREASED VENT. RATE HAS INCREASED BY 88 BPM BORDERLINE CRITERIA FOR ANTERIOR INFARCT ARE NOW PRESENT BORDERLINE CRITERIA FOR ANTEROLATERAL INFARCT ARE NOW PRESENT Confirmed by Fuad Bright ([id number]) on 03/03/2018 4:04:37 PM Referred By: Confirmed By:Fuad Bright
== END 2018-03-02 22:23 | disposition home or self-care (01) ==
LOC: JER 18:04
DX: R00.2 Palpitations (principal); O16.5 Unspecified maternal hypertension, complicating the puerperium
CPT/HCPCS: 36415; 71046-TC-FY; 80053; 81003; 82550; 83880; 84443; 84484; 84703; 85025; 85610; 85730; 93005; 93010; 99283-25

== ENCOUNTER 2018-03-14 08:38 | Emergency (ER) | payer OTHER ==
[2018-03-14 08:48] VITALS: BMI 25.1
--- NOTE | 2018-03-14 09:43 | PDOC ---
History of Present Illness <Elizabeth Martin - Last Filed: 03/14/18 14:14> - History of Present Illness Initial Comments: Uzma Beltrán is a 32yo woman with a h/o hypertension diagnosed last spring after having a baby. She presents today because she has been having intermittent painful twinges along her left lateral ribs and because she checked her BP at home today and it was "really high" to SBP 160. She also reports that she was tachycardic when she arrived here. Ms Beltrán states that she wants to know why she has been hypertensive, as she eats well and is not significantly overweight. She says that there must be blood tests that should have been done to figure it out. She has a "kidney ultrasound" scheduled but feels there is something else that should be done. Ms Beltrán reports that she saw her PMD, Dr Merino, earlier this week due to the painful twinges, and she was told that it was "muscle inflammation." She reports that it is a very mild pain that does not actually bother her, and the pain resolves after a second or two. She also reports numbness/tingling at the tips of her fingers and on the skin of her left chest. This is a new symptom, and she has never had it before. She is concerned that there is something wrong with her heart. She denies any other symptoms including headache, focal neurological symptoms, nausea/vomiting, sweating, fever, lightheadedness, heartburn, or abdominal pain. <Tiffanie Lackey - Last Filed: 03/14/18 15:19> - General Chief Complaint: Pain Stated Complaint: PALPITATIONS, ABD PAIN Time Seen by Provider: 03/14/18 09:39 Past History <Elizabeth Martin - Last Filed: 03/14/18 14:14> - Past Medical History COPD: No HTN: Yes (post delivery) Psychiatric Problems: Yes (anxiety) - Immunization History Immunization Up to Date: Yes - Suicide/Smoking/Psychosocial Hx Smoking History: Never smoked Have you smoked in the past 12 months: No Hx Alcohol Use: No Drug/Substance Use Hx: No Substance Use Type: None <Tiffanie Lackey - Last Filed: 03/14/18 15:19> - Past Medical History Allergies/Adverse Reactions: Allergies Allergy/AdvReac Type Severity Reaction Status Date / Time No Known Allergies Allergy Verified 03/14/18 08:48 Home Medications: Ambulatory Orders Labetalol HCl [Normodyne -] 100 mg PO DAILY 03/14/18 Review of Systems - Review of Systems Comments:: General: No fevers, no chills, no weight or appetite change, no malaise HEENT: No changes in vision, no changes in hearing, no congestion, no sore throat CV: +Brief/sharp chest pains, +palpitations, no LE edema Pulm: No SOB, no cough, no wheezing GI: No nausea or vomiting, no change in bowel habits, no melena : No frequency, no urgency, no dysuria Musc: No back pain, no joint swelling, no recent injury Skin: No rash, no lesions, no erythema Endo: No excessive thirst, no heat/cold intolerance Heme: No unusual bruising or bleeding, no swollen glands Neuro: No syncope, no numbness/tingling, no focal weakness Vasc: No claudication Psych: No recent change in mood, no SI or HI <Tiffanie Lackey - Last Filed: 03/14/18 15:19> *Physical Exam - Vital Signs Last Vital Signs Temp Pulse Resp BP Pulse Ox 99.3 F 84 18 114/81 99 03/14/18 10:04 03/14/18 10:04 03/14/18 10:04 03/14/18 10:04 03/14/18 10:04 <Elizabeth Martin - Last Filed: 03/14/18 14:14> - Vital Signs Last Vital Signs Temp Pulse Resp BP Pulse Ox 98.8 F 124 H 18 141/92 99 03/14/18 08:45 03/14/18 08:45 03/14/18 08:45 03/14/18 08:45 03/14/18 08:45 - Physical Exam Comments: General: Comfortable, no acute distress HEENT: PERRL, EOMI, MMM, voice normal, normal neck ROM, no LAD Cards: RRR, no murmur appreciated Pulm: Comfortable on room air, clear to auscultation bilaterally Abd: Soft, nontender, nondistended Ext: Atraumatic. No LE edema. ROM intact. Strength 5/5 and equal bilaterally Vasc: Extremities WWP. Palpable radial and pedal pulses bilaterally Skin: Normal color, no rashes or lesions Neuro: A&Ox3, CN grossly intact, normal speech, motor/sensory grossly intact and symmetric. No focal deficits. Psych: Mood appropriate to situation <Tiffanie Lackey - Last Filed: 03/14/18 15:19> ED Treatment Course - LABORATORY CBC & Chemistry Diagram: 03/14/18 11:17 03/14/18 11:17 - ADDITIONAL ORDERS Additional order review: Laboratory Results 03/14/18 03/14/18 03/14/18 11:17 11:00 07:30 Sodium 139 Potassium 4.3 Chloride 107 Carbon Dioxide 25 Anion Gap 6 L BUN 9 Creatinine 0.6 Creat Clearance w eGFR > 60 Random Glucose 77 Calcium 8.4 L Creatine Kinase 58 Troponin I < 0.02 Beta HCG, Quant 2697.5 Cancelled Urine HCG, Qual Positive 03/14/18 11:17 RBC 4.21 MCV 91.2 MCHC 33.9 RDW 13.3 MPV 9.6 - RADIOLOGY Radiology Studies Ordered: Category Date Time Status TRANSVAGINAL US PREG [US] Stat Ultrasound 03/14/18 12:36 Completed <Elizabeth Martin - Last Filed: 03/14/18 14:14> - LABORATORY CBC & Chemistry Diagram: 03/14/18 11:17 03/14/18 11:17 <Tiffanie Lackey - Last Filed: 03/14/18 15:19> Medical Decision Making - Medical Decision Making 03/14/18 11:40 Uzma Beltrán is a 32yo woman with a history of hypertension for the past 7 months since giving in Spring. She also reports a new onset of numbness and tingling in her left chest and left arm, especially the fingertips. - Most likely musculoskeletal in nature, but given new tingling in left chest and left arm, will r/o cardiac cause - EKG completed previously, sinus tachycardia w/l other abnormalities - CBC, chemistry, trop 03/14/18 12:51 - Urine positive. Ms Beltrán was informed - Labs reviewed, otherwise unremarkable - Quant bHCG is 2697 - Transvaginal US ordered to r/o ectopic and determine approximate gestational age 1103/14/18 14:50 - US completed, reviewed. Two gestational sacs appreciated within the uterus, but no pole - May be chemical vs very early twin - Discussed US results with Ms Beltrán and reviewed images. Instructed to follow up in 2 days for repeat quant bHCG. She states understanding and agreement. - Will discharge home with close follow up in 48-72hrs Seen and discussed with Dr Martin. Tiffanie Lackey PGY1 <Tiffanie Lackey - Last Filed: 03/14/18 15:19> *DC/Admit/Observation/Transfer - Discharge Dispostion Decision to Admit order: No <Elizabeth Martin - Last Filed: 03/14/18 14:14> - Discharge Dispostion Decision to Admit order: No <Tiffanie Lackey - Last Filed: 03/14/18 15:19> Diagnosis at time of Disposition: Positive test, Atypical chest pain - Discharge Dispostion Disposition: HOME Condition at time of disposition: Stable - Referrals Referrals: Marco Merino MD [Primary Care Provider] - - Patient Instructions Printed Discharge Instructions: DI for -- Discomforts and Remedies Additional Instructions: FOLLOW UP WITH YOUR [employer] WITHIN 48 HOURS, YOU MAY NEED ADDITIONAL BLOODWORK AND A FOLLOW-UP ULTRASOUND. RETURN TO THE ER FOR SEVERE CHEST PAIN, SHORTNESS OF BREATH, SWELLING IN YOUR LEGS, VAGINAL BLEEDING OR ANY OTHER CONCERNING SYMPTOMS. - Post Discharge Activity
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
[2018-03-14 10:05] VITALS: BP 114/81; PULSE 84; TEMP 99.3
[2018-03-14 11:35] LABS: HEMATOCRIT 38.4 % (32.4-45.2); MCH 30.9 pg (25.7-33.7); MCHC 33.9 g/dl (32.0-36.0); MEAN CELL VOLUME 91.2 fl (80-96); MEAN PLT VOLUME 9.6 fl (7.5-11.1); PLATELET COUNT 267 K/MM3 (134-434); RBC 4.21 M/mm3 (3.60-5.2); RDW 13.3 % (11.6-15.6); WHITE BLOOD COUNT 4.7 K/mm3 (4.0-10.0)
[2018-03-14 12:08] LABS: ANION GAP 6 MMOL/L (8-16); BLOOD UREA NITROGEN 9 mg/dL (7-18); CALCIUM 8.4 mg/dL (8.5-10.1); CHLORIDE 107 mmol/L (98-107); CO2 25 mmol/L (21-32); CREATININE 0.6 mg/dL (0.55-1.3); GLUCOSE,RANDOM 77 mg/dL (74-106); POTASSIUM 4.3 mmol/L (3.5-5.1); SODIUM 139 mmol/L (136-145)
--- NOTE | 2018-03-18 15:40 | EKG ---
Test Reason : Blood Pressure : / mmHG Vent. Rate : 104 BPM Atrial Rate : 104 BPM P-R Int : 194 ms QRS Dur : 076 ms QT Int : 322 ms P-R-T Axes : 060 053 045 degrees QTc Int : 423 ms SINUS TACHYCARDIA POSSIBLE LEFT ATRIAL ENLARGEMENT CANNOT RULE OUT ANTERIOR INFARCT , AGE UNDETERMINED ABNORMAL ECG WHEN COMPARED WITH ECG OF 02-MAR-2018 19:04, NO SIGNIFICANT CHANGE WAS FOUND Confirmed by DEANNA CHICAS, MAX ([id number]) on 03/18/2018 3:40:37 PM Referred By: Confirmed By:MAX HUERTA MD
== END 2018-03-14 14:24 | disposition home or self-care (01) ==
LOC: JER 08:38
DX: O26.891 Other specified pregnancy related conditions, first trimester (principal); R07.89 Other chest pain; Z3A.00 Weeks of gestation of pregnancy not specified; O16.5 Unspecified maternal hypertension, complicating the puerperium
CPT/HCPCS: 36415; 76817-TC; 80048; 82550; 84484; 84702; 84703; 85027; 93005; 93010; 99282-25

== ENCOUNTER 2018-06-21 16:21 | Emergency (ER) | payer OTHER ==
[2018-06-21 16:27] VITALS: BMI 25.0
--- NOTE | 2018-06-21 17:17 | PDOC ---
History of Present Illness - General Chief Complaint: Pain Stated Complaint: ABDOMINAL PAIN Time Seen by Provider: 06/21/18 17:15 - History of Present Illness Initial Comments: 32 yo F with history of HTN (occurs intermittently and not on medicine for it) presenting with LUQ pain x 1 week. The pain radiates up the left side of her chest extending just inferior to the clavicle. Patient states the pain has occurred for one week and started as a "dull, achey" sensation. Yesterday, she started feeling a "sharp, pulling" sensation most focal to the LUQ that made her concerned so she decided to come to the ED. Denies history of abdominal surgeries. Last menstrual period was 06/09/18. Last bowel movement was this morning and was a normal formed brown stool without blood. Endorses some nausea yesterday, but not currently and no vomiting. She has had a normal appetite. Her pain may worsen after eating but she is not certain. No hemoptysis, no recent surgical history, no recent immobilization, no hormone use, no history of DVT or PE. She has a headache that is consistent with headaches she has had in the past. Denies fevers, chills, or shortness of breath. Past History - Past Medical History Allergies/Adverse Reactions: Allergies Allergy/AdvReac Type Severity Reaction Status Date / Time No Known Allergies Allergy Verified 06/21/18 16:27 Home Medications: Ambulatory Orders Mag Hydrox/Al Hydrox/Simeth [Mylanta Suspension -] 30 ml PO Q6H #1 bottle RX: Ranitidine [Zantac -] 150 mg PO BID #60 tablet 06/21/18 COPD: No HTN: Yes (post delivery) Psychiatric Problems: Yes (anxiety) - Immunization History Immunization Up to Date: Yes - Suicide/Smoking/Psychosocial Hx Smoking History: Never smoked Have you smoked in the past 12 months: No Hx Alcohol Use: No Drug/Substance Use Hx: No Substance Use Type: None Review of Systems - Review of Systems Comments:: Constitutional: no fever, no chills HEENT: no throat pain, no dysphagia Cardiovascular: +chest pain, no palpitations Respiratory: no cough, no shortness of breath Gastrointestinal: +abdominal pain, +nausea Genitourinary: no dysuria, no frequency Musculoskeletal: no myalgia, no arthralgia Skin: no rash, no itching Neurologic: +headache, no dizziness *Physical Exam - Vital Signs Last Vital Signs Temp Pulse Resp BP Pulse Ox 98.5 F 93 H 18 130/88 97 06/21/18 16:24 06/21/18 16:24 06/21/18 16:24 06/21/18 16:24 06/21/18 16:24 - Physical Exam Comments: General: Awake, alert, and fully oriented, in no acute distress Head: No signs of trauma Eyes: EOMI, sclera anicteric ENT: Moist mucus membranes Neck: Normal ROM, supple Lungs: Lungs clear, Normal breath sounds Cardio: Regular rhythm, S1 and S2 present, left side of chest wall tender to palpation Abdomen: Tender to palpation in LUQ. Soft, nondistended. No guarding, no rebound , no masses Extremities: Normal range of motion, Distal pulses present SKIN: Warm, Dry, normal turgor Neurologic: Cranial nerves II through XII grossly intact. Normal speech Moderate Sedation - Procedure Monitoring Vital Signs: Procedure Monitoring Vital Signs Temperature 98.5 F 06/21/18 16:24 Pulse Rate 93 H 06/21/18 16:24 Respiratory Rate 18 06/21/18 16:24 Blood Pressure 130/88 06/21/18 16:24 O2 Sat by Pulse Oximetry (%) 97 06/21/18 16:24 ED Treatment Course - LABORATORY CBC & Chemistry Diagram: 06/21/18 18:36 06/21/18 18:36 Medical Decision Making - Medical Decision Making 32 yo F with history of HTN (occurs intermittently and not on medicine for it) presenting with LUQ pain x 1 week. DDX including but not limited to gastritis, GERD, gastroenteritis, ACS, PNA, hiatal hernia, MSK CBC, CMP, Tpn, Lipase, UA/UCx, EKG, CXR GI cocktail and Ofirmev 06/21/18 17:47 EKG: rate 81, Qtc 404, NSR, no ST d/e, twi in V1 and V2 present on previous EKG 03/14/18 No anemia or leukocytosis, Tpn negative UA with trace LE and 2 WBC with rare epithelial cells-- low suspicion for UTI as patient does not have urinary complaints CXR without acute pathology (my impression) Patient reports feeling better after receiving medications Plan to discharge 06/21/18 20:16 *DC/Admit/Observation/Transfer Diagnosis at time of Disposition: LUQ pain, Atypical chest pain - Discharge Dispostion Disposition: HOME Condition at time of disposition: Improved - Prescriptions Prescriptions: Mag Hydrox/Al Hydrox/Simeth [Mylanta Suspension -] 30 ml PO Q6H #1 bottle RX: Ranitidine [Zantac -] 150 mg PO BID #60 tablet - Referrals Referrals: Marco Merino MD [Primary Care Provider] - Edgardo Watson MD [Staff Physician] - - Patient Instructions Printed Discharge Instructions: DI for Abdominal Pain-Adult, DI for Atypical Chest Pain Additional Instructions: You came to the ED for abdominal pain and chest pain. We performed blood work, an EKG, and Xray which were normal. Prescriptions sent to your pharmacy. You can also take [id number] tylenol for pain. Follow the instructions on the medication bottle. Follow-up with you primary care physician in 5-7 days to discuss this ED visit and to further evaluate your back pain. Your care is not complete until you do so. Call and make an appointment. We have referred you to a GI doctor. If your symptoms do not improve within one week, call and make an appointment. Immediate medical attention is required if you have: you develop worsening pain , high fevers, persistent nausea, vomiting, or any new or concerning symptoms. If you think you are having an emergency, call for emergency medical services or present to the emergency department right away. - Post Discharge Activity
[2018-06-21] MEDS ORDERED: MAG HYDROX/AL HYDROX/SIMETH 30 ML UNIT-DOSE CUP PO ONE (17:37)
[2018-06-21] MEDS ORDERED: FAMOTIDINE 20 MG/50 ML IVPB 20 MG/50 ML MG IVPB ONE ×2 (17:37→18:07)
[2018-06-21] MEDS ORDERED: ACETAMINOPHEN 1000 MG/100 ML VIAL (NON FORMULARY) IVPB ONE (17:37)
--- NOTE | 2018-06-21 17:58 | PDOC ---
Attending Attestation - HPI HPI: 06/21/18 18:00 The patient is a 32 year old female with a PMH of HTN presets to the ER with left upper quadrant pain for the past week that radiates to the mid chest. Denies any alleviating or exacerbating factors. The patient denies shortness of breath, headache and dizziness. Denies fever, chills, nausea, vomit, diarrhea and constipation. Denies dysuria, frequency, urgency and hematuria. Allergies: NKA Past surgical history: None reported. Social history: No reported alcohol, drug or cigarette use. PCP: Dr. Merino - Physicial Exam PE: 06/21/18 17:59 ADULT EXAM GENERAL: Awake, alert, and fully oriented, in no acute distress LUNGS: Breath sounds equal, clear to auscultation bilaterally. No wheezes, and no crackles HEART: Regular rate and rhythm, normal S1 and S2, no murmurs, rubs or gallops ABDOMEN: Soft, normoactive bowel sounds. No guarding, no rebound. No masses. ( +) Left upper quadrant tenderness. EXTREMITIES: Normal range of motion, no edema. No clubbing or cyanosis. No cords, erythema, or tenderness NEUROLOGICAL: Cranial nerves II through XII grossly intact. Normal speech, normal gait SKIN: Warm, Dry, normal turgor, no rashes or lesions noted. <Alysha Richey - Last Filed: 06/21/18 18:00> - Resident Resident Name: PavithraElizabeth - ED Attending Attestation I have performed the following: I have examined & evaluated the patient, The case was reviewed & discussed with the resident, I agree w/resident's findings & plan, Exceptions are as noted - Medical Decision Making 06/21/18 17:56 A portion of this note was documented by scribe services under my direction. I have reviewed the details of the note, within reason, and agree with the documentation with the following case summary and management plan written by me. Patient treated in the ED. Nursing notes are reviewed and incorporated into the medical decision-making. Vital signs reviewed. Peripheral IV access obtained by the nurse, laboratory studies are drawn and sent, reviewed and interpreted by myself. Vital Signs Temp Pulse Resp BP Pulse Ox 98.5 F 93 H 18 130/88 97 06/21/18 16:24 06/21/18 16:24 06/21/18 16:24 06/21/18 16:24 06/21/18 16:24 32-year-old female with past medical history of hypertension currently not on medications presents with left upper quadrant discomfort. The patient reported 1 week of approximately left upper pain in the abdomen radiating to the mid chest. Denies exertional component. Denies shortness of breath. Unsure if this is related to food. States when she palpates her left upper quadrant that reproduces the pain. This is unlikely to be acute coronary syndrome or pulmonary embolism. I suspect this is likely gastritis. We'll however, obtain chest x-ray to rule out hiatal hernia. This is likely gastritis/GERD. Labs and reassess. <Eric Vivar - Last Filed: 06/21/18 18:36> Heart Score/ECG Review #1 ECG reviewed & interpreted by me at: 18:30 06/21/18 18:36 NSR 81, no std/facundo, normal axis, noraml intevals, TWI V2, QTC 404 msec <Eric Vivar - Last Filed: 06/21/18 18:36>
[2018-06-21] MEDS ORDERED: ACETAMINOPHEN INJECTION 100 ML IVPB ONE (18:06)
[2018-06-21] MEDS ORDERED: MAG HYDROX/AL HYDROX/SIMETH 30 ML UNIT-DOSE CUP ONE (18:06)
[2018-06-21 18:39] LABS: URINE APPEARANCE CLEAR; URINE BILIRUBIN NEGATIVE (<2.0 mg/dL); URINE COLOR YELLOW; URINE GLUCOSE (UA) NEGATIVE (NEGATIVE); URINE KETONE NEGATIVE (NEGATIVE); URINE LEUK ESTERASE TRACE (NEGATIVE); URINE NITRITE NEGATIVE (NEGATIVE); URINE PROTEIN NEGATIVE (NEGATIVE); URINE UROBILINOGEN 4.0 E.U/dl mg/dL (0.2-1.0)
[2018-06-21 18:44] LABS: EPI CELLS RARE /HPF (FEW); URINE MUCUS RARE
[2018-06-21 18:49] LABS: BASO % 0.2 % (0-2.0); EOS % 4.1 % (0-4.5); HEMATOCRIT 39.3 % (32.4-45.2); HEMOGLOBIN 13.9 GM/dL (10.7-15.3); LYMPH % 22.8 % (8-40); MCHC 35.4 g/dl (32.0-36.0); MEAN CELL VOLUME 93.5 fl (80-96); MEAN PLT VOLUME 9.4 fl (7.5-11.1); MONO % 8.5 % (3.8-10.2); NEUT % 64.4 % (42.8-82.8); PLATELET COUNT 206 K/MM3 (134-434); RDW 13.6 % (11.6-15.6); WHITE BLOOD COUNT 4.7 K/mm3 (4.0-10.0)
[2018-06-21 19:17] LABS: ALK PHOS 74 U/L (45-117); ANION GAP 7 MMOL/L (8-16); BILIRUBIN,TOTAL 0.2 mg/dL (0.2-1); BLOOD UREA NITROGEN 17 mg/dL (7-18); CALCIUM 8.6 mg/dL (8.5-10.1); CHLORIDE 104 mmol/L (98-107); CO2 29 mmol/L (21-32); GLUCOSE,RANDOM 102 mg/dL (74-106); POTASSIUM 4.1 mmol/L (3.5-5.1); SGOT/AST 9 U/L (15-37); SGPT/ALT 16 U/L (13-61); SODIUM 140 mmol/L (136-145)
[2018-06-21 19:20] LABS: LIPASE 263 U/L (73-393)
[2018-06-21 20:35] VITALS: BP 127/86; PULSE 75; TEMP 98.4
--- NOTE | 2018-06-22 09:43 | EKG ---
Test Reason : Blood Pressure : / mmHG Vent. Rate : 081 BPM Atrial Rate : 081 BPM P-R Int : 194 ms QRS Dur : 080 ms QT Int : 348 ms P-R-T Axes : 017 057 050 degrees QTc Int : 404 ms NORMAL SINUS RHYTHM NORMAL ECG WHEN COMPARED WITH ECG OF 14-MAR-2018 08:54, NO SIGNIFICANT CHANGE WAS FOUND Confirmed by KACIE DENNIS MD ([id number]) on 06/22/2018 9:42:42 AM Referred By: Confirmed By:KACIE DENNIS MD
== END 2018-06-21 20:44 | disposition home or self-care (01) ==
LOC: JER 16:21
PROC: 3E033GC Introduction of Other Therapeutic Substance into Peripheral Vein, Percutaneous Approach (ICD-10-PCS; principal; 2018-06-21)
PROC: 3E033NZ Introduction of Analgesics, Hypnotics, Sedatives into Peripheral Vein, Percutaneous Approach (ICD-10-PCS; 2018-06-21)
DX: R07.89 Other chest pain (principal); R10.12 Left upper quadrant pain; I10 Essential (primary) hypertension
CPT/HCPCS: 36415; 71046-TC-FY; 80053; 81003; 81015; 83690; 84484; 84703; 85025; 87086; 93005; 93010; 96365; 96375; 99284-25; J0131

== ENCOUNTER 2019-03-26 17:57 | Emergency (ER) | payer OTHER ==
[2019-03-26 18:09] VITALS: BP 144/83; PULSE 85; TEMP 98.3; BMI 27.1
[2019-03-26] MEDS ORDERED: SODIUM CHLORIDE 1,000 ML IV STA (19:09)
[2019-03-26] MEDS ORDERED: METOCLOPRAMIDE HCL INJECTION 10 MG/2 ML VIAL IVPUSH ONE (19:09)
--- NOTE | 2019-03-26 19:15 | PDOC ---
History of Present Illness - General Chief Complaint: Headache Stated Complaint: HEADACHE Time Seen by Provider: 03/26/19 18:23 History Source: Patient Exam Limitations: No Limitations - History of Present Illness Initial Comments: 03/26/19 19:10 HISTORY OF PRESENT ILLNESS: 33-year-old woman past medical history of hypertension who presents to the emergency department for evaluation of occipital headache which is been waxing and waning over the past 7 days. Patient reports she is been taking Naprosyn 500 mg twice a day which is controlling her headaches but the pain returns in the intensity increases to 10/ 10. Presently patient reports her pain is a 5/10 describes as a throbbing sensation in the occiput bilaterally. She reports that as the pain progresses it radiates to the bitemporal region and occasionally gives her some tingling to the right side of the face. She reports she has had headaches in the past but never this intense. Patient reports her period started approximately 3 days ago. She denies any blurry vision, dizziness, vomiting or visual disturbances. Patient wears glasses and her prescription is approximately 1- month-old. 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 No recent travel or sick contacts. PAST MEDICAL HISTORY: See HPI SURGICAL HISTORY: Denies ALLERGIES: No known drug allergies REVIEW OF SYSTEMS General/Constitutional: Denies fever or chills. Denies weakness, weight change. HEENT: Denies change in vision. Denies ear pain or discharge. Denies sore throat. Cardiovascular: Denies chest pain or shortness of breath. Respiratory: Denies cough, wheezing, or hemoptysis. Gastrointestinal: Denies nausea, vomiting, diarrhea or constipation. Denies rectal bleeding. Genitourinary: Denies dysuria, frequency, or change in urination. Musculoskeletal: Denies joint or muscle swelling or pain. Denies neck or back pain. Skin and breasts: Denies rash or easy bruising. Neurologic: See HPI Psychiatric: Denies depression or anxiety. Endocrine: Denies increased thirst. Denies abnormal weight change. Hematologic/Lymphatic: Denies anemia, easy bleeding, or history of blood clots. Allergic/Immunologic: Denies hives or skin allergy. Denies latex allergy. PHYSICAL EXAM General Appearance: Well-appearing, appropriately dressed. No apparent distress , no intoxication. HEENT: EOMI, PERRLA, normal ENT inspection, normal voice, TMs normal, pharynx normal. No conjunctival pallor. No photophobia, scleral icterus. Neck: Supple. Trachea midline. No tenderness, rigidity, carotid bruit, stridor , lymphadenopathy, or thyromegaly. Respiratory/Chest: Lungs CTAB. No shortness of breath, chest tenderness, respiratory distress, accessory muscle use. No crackles, rales, rhonchi, stridor , wheezing, dullness Cardiovascular: RRR. S1, S2. No JVD, murmur, bradycardia, tachycardia. Vascular Pulses: Dorsalis-Pedis (R): 2+, Dorsalis-Pedis (L): 2+ Gastrointestinal/Abdominal: Normal bowel sounds. Abdomen soft, non-distended. No tenderness or rebound tenderness. No organomegaly, pulsatile mass, guarding, hernia, hepatomegaly, splenomegaly. Lymphatic: No adenopathy, tenderness. Musculoskeletal/Extremities: Normal inspection. FROM of all extremities, normal capillary refill. Pelvis Stable. No CVA tenderness. No tenderness to extremities, pedal edema, swelling, erythema or deformity. Integumentary: Appropriate color, dry, warm. 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 Fully oriented, alert. Appropriate mood/affect. Motor strength 5/5. No appreciable EOM palsy, facial droop or sensory deficit. Normal [id number] testing. Gait is steady. Past History - Past Medical History Allergies/Adverse Reactions: Allergies Allergy/AdvReac Type Severity Reaction Status Date / Time No Known Allergies Allergy Verified 03/26/19 18:09 Home Medications: Ambulatory Orders Mag Hydrox/Al Hydrox/Simeth [Mylanta Suspension -] 30 ml PO Q6H #1 bottle Ranitidine [Zantac -] 150 mg PO BID #60 tablet 06/21/18 COPD: No HTN: Yes (post delivery) Psychiatric Problems: Yes (anxiety) - Immunization History Immunization Up to Date: Yes - Psycho Social/Smoking Cessation Hx Smoking History: Never smoked Have you smoked in the past 12 months: No Hx Alcohol Use: No Drug/Substance Use Hx: No Substance Use Type: None *Physical Exam - Vital Signs Last Vital Signs Temp Pulse Resp BP Pulse Ox 98.3 F 85 18 144/83 100 03/26/19 18:07 03/26/19 18:07 03/26/19 18:07 03/26/19 18:07 03/26/19 18:07 Medical Decision Making - Medical Decision Making 03/26/19 19:13 A/P: 33-year-old woman with waxing and waning headache for 1 week Differential diagnosis includes but is not limited to-CVA, migraine, muscular skeletal, TIA. Less likely CVA or TIA as patient has a normal neurologic exam. Patient with likely migraine probably from menstrual etiology. Normal saline 1 L IV bolus Reglan 10 mg IV Benadryl 12.5 mg IV Urinalysis Urine Urine culture Reassess 03/26/19 20:53 CT scan is read by Dr. Richardson: No obvious mass lesion is seen. There is no CT evidence of acute intracranial pathology. In comparison to prior cranial CT studies interval development of a moderate amount of fluid is seen within the partially imaged right maxillary sinus-? Acute sinusitis. Correlate clinically Patient reports pain levels currently 2/10 after receiving Reglan, Benadryl and IV fluids. Headache is likely migrainous in nature. I will discharge patient home to follow-up with neurology for continued evaluation. Discharge - Discharge Information Problems reviewed: Yes Clinical Impression/Diagnosis: Headache Qualifiers: Headache type: other headache syndrome Qualified Code(s): G44.89 - Other headache syndrome Condition: Stable Disposition: HOME - Admission No - Follow up/Referral Referrals: Marco Merino MD [Primary Care Provider] - Pepito Early MD [Staff Physician] - - Patient Discharge Instructions Additional Instructions: Take Tylenol or Motrin as needed for headaches. Keep a diary of all food to eat and activities performed prior to headaches starting. Make an appointment with her primary doctor for reevaluation within the next week. Return to emergency department for worsening headache, blurry vision, dizziness , nausea, vomiting or any other concerns. Thank you very much for for choosing us to provide emergent health care needs. - Post Discharge Activity
[2019-03-26] MEDS ORDERED: METOCLOPRAMIDE HCL INJECTION 10 MG/2 ML VIAL ONE (19:33)
[2019-03-26 19:37] LABS: PH,URINE 7.5 (5.0-8.0); URINE APPEARANCE CLOUDY; URINE BILIRUBIN NEGATIVE (NEGATIVE); URINE COLOR YELLOW; URINE GLUCOSE (UA) NEGATIVE (NEGATIVE); URINE KETONE NEGATIVE (NEGATIVE); URINE LEUK ESTERASE NEGATIVE (NEGATIVE); URINE NITRITE NEGATIVE (NEGATIVE); URINE PROTEIN NEGATIVE (NEGATIVE)
== END 2019-03-26 21:00 | disposition home or self-care (01) ==
LOC: JERFT 17:57
PROC: 3E033GC Introduction of Other Therapeutic Substance into Peripheral Vein, Percutaneous Approach (ICD-10-PCS; principal; 2019-03-26)
PROC: 3E033GC Introduction of Other Therapeutic Substance into Peripheral Vein, Percutaneous Approach (ICD-10-PCS; 2019-03-26)
DX: R51 Headache (principal); I10 Essential (primary) hypertension
CPT/HCPCS: 70450-TC; 81003; 84703; 87086; 99282-25; J7030

== ENCOUNTER 2024-12-15 15:41 | Emergency (ER) | payer OTHER ==
[2024-12-15 15:55] VITALS: RESP 18; BMI 30.3
[2024-12-15] MEDS ORDERED: ACETAMINOPHEN 500 MG TABLET (FP) ONE (16:42)
[2024-12-15] MEDS: ACETAMINOPHEN 325 MG TABLET (FP) PO ONE (16:46)
[2024-12-15 18:18] VITALS: BP 152/103; PULSE 94; TEMP 100.9
== END 2024-12-15 18:20 | disposition home or self-care (01) ==
LOC: FER 15:41
DX: U07.1 COVID-19 (principal); R50.9 Fever, unspecified; R05.9 Cough, unspecified; R51.9 Headache, unspecified; R00.0 Tachycardia, unspecified; M79.10 Myalgia, unspecified site
CPT/HCPCS: 87637-QW; 99283-25